=== PATIENT | female | born 1990 | race African-American/Black ===

== ENCOUNTER 2020-10-25 11:59 | Emergency (ER) | payer SELFPAY ==
[~2020-10-25] VITALS: Ht 157.5 cm; Wt 54.5 kg
[2020-10-25 13:49] LABS: BILIRUBIN,URINE NEGATIVE (NEG); CLARITY,URINE CLOUDY; COLOR,URINE YELLOW; NITRITE,URINE NEGATIVE (NEG); PH,URINE 8.5 (<5.0-8.0); PROTEIN,URINE 30 mg/dL (NEG-TRACE); UROBILINOGEN,URINE 0.2 mg/dL (0.2 mg/dL)
[2020-10-25 13:59] LABS: AMORPHOUS SEDIMENT,UR PRESENT /HPF
[2020-10-25 14:00] LABS: RBC,URINE RARE /HPF (0-2); WBC,URINE RARE /HPF (0-4)
[2020-10-25 14:01] LABS: BACTERIA,URINE FEW /HPF (0-FEW)
[2020-10-25 15:00] VITALS: BP 123/82
--- NOTE | 2020-10-25 15:29 | ED.ADGEN ---
Past Medical History Past Medical History: No Pertinent History Past Surgical History: No Surgical History Smoking Status: Current Every Day Smoker Alcohol Use: None General Adult EDM: Chief Complaint: ABDOMINAL PAIN HPI: HPI: Patient is a 30-year-old female who presents to the emergency room complaining of lower sharp pelvic pains. Patient states that she recently found out that her IUD may need to be surgically removed. She states that is been in for the last 11 years and they tried to remove it in skilled nursing however they were unable to find it. She denies any vaginal bleeding or discharge. She does not want to be checked for STDs. She denies any urinary symptoms. Patient states that she just wants to get the IUD out. Review of Systems: Review of Systems: Complete ROS is negative unless otherwise documented in HPI Allergies: Allergies: Allergies Coded Allergies Type Severity Reaction Last Updated Verified No Known Drug Allergies 10/25/20 No Physical Exam: PE: General: Awake, alert, NAD. Well Nourished, well hydrated. Cooperative HEENT: Atraumatic, EOMI, PERRL, airway patent, moist oral mucosa Neck: Supple, trachea midline Respiratory: CTA bilaterally, normal effort, no wheezing/crackles CV: RRR, no murmur, cap refill <2 GI: Soft, nondistended, nontender, no masses MSK: No obvious deformities Skin: Warm, dry, intact Neuro: A&O x3, speech NL, sensory and motor grossly intact, no focal deficits Psych: Normal affect, normal mood, not suicidal or homicidal Current Patient Data: Labs: Laboratory Tests Test 10/25/20 12:13 10/25/20 12:20 Urine Collection Type Unknown Urine Color Yellow Urine Clarity Cloudy Urine pH 8.5 (<5.0-8.0) Urine Specific [place] 1.020 (1.000-1.030) Urine Protein 30 mg/dL (NEG-TRACE) Urine Glucose (UA) Negative mg/dL (NEG) Urine Ketones (Stick) Negative mg/dL (NEG) Urine Blood Negative (NEG) Urine Nitrite Negative (NEG) Urine Bilirubin Negative (NEG) Urine Urobilinogen Dipstick 0.2 mg/dL (0.2 mg/dL) Urine Leukocyte Esterase Negative (NEG) Urine RBC Rare /HPF (0-2) Urine WBC Rare /HPF (0-4) Urine Squamous Epithelial Cells Many /LPF Urine Amorphous Sediment Present /HPF Urine Bacteria Few /HPF (0-FEW) Urine Mucus Mod /LPF POC Urine HCG, Qualitative Hcg negative (Negative) Vital Signs: Vital Signs Date Time Temp Pulse Resp B/P (MAP) Pulse Ox O2 Delivery O2 Flow Rate FiO2 10/25/20 13:14 98.1 85 16 121/76 (91) 99 Room Air 98.1 EKG: EKG: [] Heart Score: C/O Chest Pain: N/A Risk Factors: Risk Factors: DM, Current or recent (<one month) smoker, HTN, HLP, family history of CAD, obesity. Risk Scores: Score 0 - 3: 2.5% MACE over next 6 weeks - Discharge Home Score 4 - 6: 20.3% MACE over next 6 weeks - Admit for Clinical Observation Score 7 - 10: 72.7% MACE over next 6 weeks - Early Invasive Strategies Radiology/Procedures: Radiology/Procedures: [] Course & Med Decision Making: Course & Med Decision Making Pertinent Labs and Imaging studies reviewed. (See chart for details) Patient is 30-year-old female presents to the emergency room complaining of intermittent sharp pelvic pains. Patient is wanting her IUD removed. Patient does not have any tenderness on exam. She does not want to be tested for STDs. Ultrasound will be done to evaluate the location of the IUD. Ultrasound shows the IUD in the upper canal. No signs of uterine wall perforation. Patient will follow up with [facility] [facility]. Patient's test results and vitals while in the ED were fully reviewed and discussed with the patient. Patient is stable and at this time does not need admission to the hospital. We have discussed strict return precautions and the importance of following up with their Primary Care Physician. Patient stated understanding and was given an opportunity to ask any questions. Patient is in agreement with plan. Dragon Disclaimer: Dragon Disclaimer: This electronic medical record was generated, in whole or in part, using a voice recognition dictation system. Departure Departure Impression: Primary Impression: Pelvic pain Disposition: HOME / SELF CARE / HOMELESS Condition: STABLE Referrals: NO PCP (PCP) YASMINE BRUNER Jr, MD Patient Instructions: Form - Excuse from Work, School, or Physical Activity, Levonorgestrel intrauterine device (IUD) MIRIAN ARIAS MD Oct 25, 2020 15:29
--- NOTE | 2020-10-25 15:32 | RAD ---
US PELVIS W/TV History: Reason: possible IUD in uterine wall / Spl. Instructions: / History: Comparison: None Technique: Grayscale and color Doppler imaging of the pelvis was performed using transabdominal and t ransvaginal technique. Findings: The uterus measures 10.4 x 4.7 x 4.8 cm. Uterus has an unremarkable appearance. The endometrial str ipe measures 5.7 mm. 80 within the upper endometrial canal. Right ovary measures 3.7 x 2.3 x 3.2 cm. Dominant right ovarian follicle measures 2.7 cm. Left ovary measures 2.9 x 2.2 x 1.6 cm. Normal Doppler flow to the ovaries. No adnexal masses are seen. IMPRESSION: 1. IUD within the upper endometrial canal. Electronically signed by: Rico Figueredo DO (10/25/2020 3:30 PM) [id number]
== END 2020-10-25 15:43 | disposition home or self-care (01) ==
LOC: ER 11:59
DX: R10.2 Pelvic and perineal pain (principal); F17.200 Nicotine dependence, unspecified, uncomplicated
CPT/HCPCS: 76830; 76856; 81001; 81025; 99284

== ENCOUNTER 2021-02-17 12:09 | Emergency (ER) | payer SELFPAY ==
[~2021-02-17] VITALS: Ht 157.5 cm; Wt 54.5 kg
[2021-02-17 13:10] VITALS: BP 132/75
[2021-02-17] MEDS ORDERED: AMOX875T PO (13:35)
--- NOTE | 2021-02-17 13:35 | PHYS DOC ---
Past Medical History Past Medical History: No Pertinent History Past Surgical History: No Surgical History Smoking Status: Current Every Day Smoker Alcohol Use: None General Adult EDM: Chief Complaint: COUGH HPI: HPI: Patient is a 30 year old female who presents to the ED today complaining of sore throat and left ear pain for 3 days. Patient denies any fever. Denies any unusual coughing or congestion. Denies any chance she is . Rates the pain is mild and intermittent. Denies anything specifically exacerbating or relieving the pain. She states she had a negative rapid Covid test a week ago Review of Systems: Review of Systems: Constitutional: Denies fever or chills. [] Eyes: Denies change in visual acuity. [] HENT: Reports left ear pain and sore throat. Denies nasal congestion Respiratory: denies cough or shortness of breath. [] Cardiovascular: Denies chest pain or edema. [] GI: Denies abdominal pain, nausea, vomiting, bloody stools or diarrhea. [] : Denies dysuria. [] Musculoskeletal: Denies back pain or joint pain. [] Integument: Denies rash. [] Neurologic: Denies headache, focal weakness or sensory changes. [] Psychiatric: Denies depression or anxiety. [] Heart Score: C/O Chest Pain: N/A Risk Factors: Risk Factors: DM, Current or recent (<one month) smoker, HTN, HLP, family history of CAD, obesity. Risk Scores: Score 0 - 3: 2.5% MACE over next 6 weeks - Discharge Home Score 4 - 6: 20.3% MACE over next 6 weeks - Admit for Clinical Observation Score 7 - 10: 72.7% MACE over next 6 weeks - Early Invasive Strategies Allergies: Allergies: Allergies Coded Allergies Type Severity Reaction Last Updated Verified No Known Drug Allergies 10/25/20 No Physical Exam: PE: Constitutional: Well developed, well nourished, no acute distress, non-toxic appearance. [] HENT: Normocephalic, atraumatic, bilateral external ears normal, oropharynx m oist, no oral exudates, nose normal. [] Left TM is mildly injected with small amount of cloudy fluid. Right TM is normal. Posterior pharynx with mild erythema no exudate Eyes: PERRLA, EOMI, conjunctiva normal, no discharge. [] Neck: Normal range of motion, no tenderness, supple, no stridor. [] Cardiovascular:Heart rate regular rhythm, no murmur [] Lungs & Thorax: Bilateral breath sounds clear to auscultation [] Abdomen: Bowel sounds normal, soft, no tenderness, no masses, no pulsatile masses. [] Skin: Warm, dry, no erythema, no rash. [] Back: No tenderness, no CVA tenderness. [] Extremities: No tenderness, no cyanosis, no clubbing, ROM intact, no edema. [] Neurologic: Alert and oriented X 3, normal motor function, normal sensory function, no focal deficits noted. [] Psychologic: Affect normal, judgement normal, mood normal. [] Current Patient Data: Vital Signs: Vital Signs Date Time Temp Pulse Resp B/P (MAP) Pulse Ox O2 Delivery O2 Flow Rate FiO2 02/17/21 13:10 98.6 71 18 132/75 99 Room Air 98.6 EKG: EKG: [] Radiology/Procedures: Radiology/Procedures: [] Course & Med Decision Making: Course & Med Decision Making Pertinent Labs and Imaging studies reviewed. (See chart for details) This is a 30-year-old female patient with otitis media and pharyngitis. Discharged on amoxicillin. Salt water gargles recommended. Tylenol/Motrin for pain and fever. Khris Disclaimer: Khris Disclaimer: This electronic medical record was generated, in whole or in part, using a voice recognition dictation system. Departure Departure Impression: Primary Impression: Otitis media, left Qualified Codes: H65.192 - Other acute nonsuppurative otitis media, left ear Additional Impression: Pharyngitis, acute Qualified Codes: J02.9 - Acute pharyngitis, unspecified Disposition: HOME / SELF CARE / HOMELESS Condition: STABLE Referrals: NO PCP (PCP) AWA BUTLER MD follow up in one week Patient Instructions: Otitis Media, Adult, Viral Pharyngitis Additional Instructions: You have ear infection and throat infection. Take the prescribed antibiotics until completed. You can use salt water gargles as needed for your symptoms. You can take Tylenol or Motrin for pain or fever. Scripts Amoxicillin (AMOXICILLIN) 875 Mg Tablet 1 TAB PO BID, #20 TAB Prov: DEWEY SPANN APRN 02/17/21 DEWEY SPANN APRN Feb 17, 2021 13:35
== END 2021-02-17 13:45 | disposition home or self-care (01) ==
LOC: ER 12:09
DX: H65.192 Other acute nonsuppurative otitis media, left ear (principal); J02.9 Acute pharyngitis, unspecified; F17.200 Nicotine dependence, unspecified, uncomplicated
CPT/HCPCS: 99283

== ENCOUNTER 2021-04-16 16:56 | Emergency (ER) | payer SELFPAY ==
[~2021-04-16 16:56] MED LIST: AMOX875T PO
== END 2021-04-16 20:02 | disposition left against medical advice (07) ==
LOC: ER 16:56
DX: R09.81 Nasal congestion (principal); Z53.21 Procedure and treatment not carried out due to patient leaving prior to being seen by health care provider